=== PATIENT | male | born 1965 | race Caucasian/White ===

== ENCOUNTER 2019-04-29 17:29 | Inpatient (IN) | payer OTHER ==
[~2019-04-29] VITALS: Ht 190.5 cm; Wt 106.1 kg
[~2019-04-29 17:29] MED LIST: LIDOcaine 2% (20 mg/ml) 5ml cardiac syringe ONE; albumin (human) 25% 100 ML IV solution IV ONE; aminocaproic acid 250 MG/1 ML inj. ONE; aspirin 81mg tab.chew ONE; calcium chloride 100 MG/1 ML inj IV ONE; heparin 1,000 units/ml 10ml inj ONE; heparin 10,000 units/1 ML INJ ONE; magnesium sulf 1 GM/2 ML ONE; methylPREDNISolone sod. succ. 500mg inj ONE; nitroGLYCERIN in D5W 50mg/250ml (Tridil) infusion IV ONE; normal saline 1000ML IV soln ONE; papaverine 30 mg/ml 2ml inj. ONE; phenylephrine 10mg/ml inj. ONE; potassium Cl 2 mEq/ml inj IV ONE; sodium bicarbonate (8.4%) 1 mEq/ml syringe ONE
[2019-04-29] MEDS ORDERED: niCARDipine-NS 40mg/200ml IVPB 200 ML IV SCH (17:50)
[2019-04-29] MEDS ORDERED: nitroGLYCERIN-Tridil 50MG/D5W 250 ML IV PRN (18:20)
[2019-04-29 18:22] LABS: BASOPHILS % (AUTO) 0.3 % (0-1); EOSINOPHILS # (AUTO) 0.1 X10'3 (0-0.9); EOSINOPHILS % (AUTO) 1.5 % (0-6); HEMATOCRIT 41.3 % (42.0-52.0); HEMOGLOBIN 14.3 g/dl (14.0-17.9); MEAN CORPUSCULAR HEMOGLOBIN 31.1 PG (27.0-31.0); MEAN CORPUSCULAR HGB CONC 34.6 g/dL (33.0-36.5); MEAN CORPUSCULAR VOLUME 89.9 FL (78-98); MEAN PLATELET VOLUME 9.6 FL (7.4-10.4); MONOCYTES # (AUTO) 0.7 X10'3 (0-0.9); MONOCYTES % (AUTO) 7.8 % (2-12); NEUTROPHILS # (AUTO) 4.6 X10'3 (1.8-7.7); NEUTROPHILS % (AUTO) 54.4 % (42-75); PLATELET COUNT 191 X10'3 (140-440); RED CELL DISTRIBUTION WIDTH 12.7 % (11.5-14.5); WHITE BLOOD COUNT 8.4 X10'3 (4.5-11.0)
[2019-04-29] MEDS ORDERED: aspirin 81mg tab.chew PO ONE (18:25)
[2019-04-29] MEDS ORDERED: heparin, porcine 5000 units/ml vial IV ONE (18:25)
[2019-04-29] MEDS ORDERED: heparin, porcine 5000 units/ml vial IV SCH (18:25)
[2019-04-29] MEDS ORDERED: midazolam 2 mg/2 ml injection ONE ×2 (18:30→18:54)
[2019-04-29] MEDS ORDERED: fentaNYL/PF 50MCG/1 ML 2ML syringe ONE (18:31)
[2019-04-29] MEDS ORDERED: LIDOcaine 1% (10mg/ml)w/preservative injection 20ml MDV ONE (18:31)
[2019-04-29] MEDS ORDERED: iohexol 350 MG/1 ML 200ml bottle ONE (18:31)
[2019-04-29] MEDS ORDERED: iohexol 350 MG/ML 50ML vial IV ONE (18:31)
[2019-04-29 18:35] LABS: ALANINE AMINOTRANSFERASE 27 U/L (12-78); ALBUMIN 3.4 G/DL (3.4-5.0); ALBUMIN/GLOBULIN RATIO 0.9 (1.1-1.5); ALKALINE PHOSPHATASE 72 IU/L (46-116); ANION GAP 9 (8-16); ASPARTATE AMINO TRANSFERASE 14 U/L (10-37); BILIRUBIN,TOTAL 0.3 MG/DL (0.1-1.0); BLOOD UREA NITROGEN 14 MG/DL (7-18); BUN/CREATININE RATIO 14.9 (5.4-32.0); CALCIUM 9.1 MG/DL (8.5-10.1); CHLORIDE 103 MMOL/L (99-107); CREATININE 0.94 MG/DL (0.60-1.10); GLUCOSE 330 MG/DL (70-104); POTASSIUM 4.3 MMOL/L (3.5-5.1); SODIUM 140 MMOL/L (135-145); TOTAL CARBON DIOXIDE 27.8 MMOL/L (24-32); TOTAL PROTEIN 7.1 G/DL (6.4-8.2); eGFR 83 ML/MIN
[2019-04-29] MEDS ORDERED: heparin 10,000 units/1 ML INJ IV SCH (18:35)
[2019-04-29 18:40] LABS: MAGNESIUM 1.8 MG/DL (1.5-2.4)
[2019-04-29] MEDS ORDERED: metoprolol tartrate 1mg/ml inj IV ONE (18:57)
[2019-04-29] MEDS: heparin 25,000 UNIT/250ml bag 250 ML IV SCH (19:00)
[2019-04-29] MEDS: niCARDipine-NS 40mg/200ml IVPB 200 ML IV SCH ×2 (19:00→21:59)
[2019-04-29] MEDS ORDERED: heparin 25,000 UNIT/250ml bag 250 ML IV ONE (19:14)
--- NOTE | 2019-04-29 19:30 | NUR ---
Patient in room ICU 2041. I have received report from [facility] Medical Pathology Teacher RN and had the opportunity to ask questions and assume patient care. Right groin sheath to pressure bag and transduced. Pt denies pain at this time.
[2019-04-29 20:00] VITALS: BP 138/89
[2019-04-29] MEDS ORDERED: glucagon, human recombinant 1mg kit SUBCUT PRN (20:00)
[2019-04-29] MEDS ORDERED: potassium CL 10mEq/100ml bag 100 ML IV PRN (20:00)
[2019-04-29] MEDS ORDERED: magnesium Cl slow-release 64mg tablet PO PRN (20:00)
[2019-04-29] MEDS ORDERED: MESSAGE TO PHARMACY PO ONE (20:00)
[2019-04-29] MEDS ORDERED: dextrose 50%-water 50ml dispensing syringe IV PRN ×2 (20:00)
[2019-04-29] MEDS ORDERED: dextrose ORAL solution 15 GM/59 ML bottle PO PRN ×2 (20:00)
[2019-04-29] MEDS ORDERED: ondansetron/PF 4mg/2ml inj IV PRN (20:00)
[2019-04-29] MEDS ORDERED: magnesium 4gm in 100ml NS 100 ML IV PRN (20:00)
[2019-04-29] MEDS ORDERED: magnesium 2GM in 50ml NS 50 ML IV PRN (20:00)
[2019-04-29] MEDS ORDERED: acetaminophen 650mg rectal suppository RC PRN (20:00)
[2019-04-29] MEDS ORDERED: acetaminophen 325mg tablet PO PRN ×3 (20:00→20:35)
[2019-04-29] MEDS ORDERED: potassium Cl 20 mEq SR tablet PO PRN (20:00)
[2019-04-29] MEDS ORDERED: morphine 4 MG/ML inj SYRINge IV PRN (20:35)
[2019-04-29] MEDS ORDERED: morphine 10mg/ml inj. IV PRN (20:35)
[2019-04-29] MEDS ORDERED: HYDROcodone/acetaminophen 10/325mg tab PO PRN (20:35)
[2019-04-29] MEDS ORDERED: proCHLORperazine 10 MG/2 ml inj IV PRN (20:35)
[2019-04-29] MEDS ORDERED: magnesium hydroxide 30ml (MOM) UD suspension PO PRN (20:35)
[2019-04-29] MEDS ORDERED: nitroGLYCERIN 0.4mg SUBLingual tab SL PRN (20:35)
[2019-04-29] MEDS ORDERED: heparin 10,000 units/1 ML INJ IV ONE (20:40)
[2019-04-29] MEDS: normal saline 1000ml 1,000 ML IV SCH (20:58)
[2019-04-29 21:00] VITALS: BP 132/88
[2019-04-29 21:09] LABS: PARTIAL THROMBOPLASTIN TIME 25 SECONDS (22-32)
[2019-04-29] MEDS: cyclobenzaprine 10mg tablet PO PRN (21:15)
[2019-04-29] MEDS: metoprolol succinate 25mg (24-HOUR) SR. Tablet PO SCH (21:39)
[2019-04-29 22:00] VITALS: BP 129/73
[2019-04-29] MEDS: insulin glargine (Lantus) pen - multi-dose SQ SCH (22:11)
[2019-04-29] MEDS: insulin Lispro (HumaLOG) vial - multi-dose SQ SCH (22:14)
[2019-04-29 22:32] LABS: HEMOGLOBIN A1C 9.5 % (4.5-6.2)
[2019-04-29] MEDS ORDERED: METF500T PO (22:49)
[2019-04-29 23:00] VITALS: BP 139/76
[2019-04-29] MEDS: OXAZEpam 15mg capsule PO PRN (23:25)
[2019-04-30] VITALS (24 sets, daily range): BP systolic 92–152; BP diastolic 59–90
[2019-04-30 01:16] LABS: BASOPHILS % (AUTO) 0.3 % (0-1); EOSINOPHILS # (AUTO) 0.1 X10'3 (0-0.9); EOSINOPHILS % (AUTO) 1.5 % (0-6); HEMATOCRIT 38.4 % (42.0-52.0); HEMOGLOBIN 13.5 g/dl (14.0-17.9); LYMPHOCYTES % (AUTO) 31.3 % (21-51); MEAN CORPUSCULAR HEMOGLOBIN 31.3 PG (27.0-31.0); MEAN CORPUSCULAR VOLUME 89.3 FL (78-98); MEAN PLATELET VOLUME 9.4 FL (7.4-10.4); MONOCYTES # (AUTO) 0.6 X10'3 (0-0.9); MONOCYTES % (AUTO) 6.8 % (2-12); NEUTROPHILS # (AUTO) 5.7 X10'3 (1.8-7.7); NEUTROPHILS % (AUTO) 60.1 % (42-75); PLATELET COUNT 195 X10'3 (140-440); RED CELL DISTRIBUTION WIDTH 13.2 % (11.5-14.5); WHITE BLOOD COUNT 9.5 X10'3 (4.5-11.0)
[2019-04-30 01:39] LABS: PARTIAL THROMBOPLASTIN TIME 28 SECONDS (22-32)
[2019-04-30 01:57] LABS: ALANINE AMINOTRANSFERASE 28 U/L (12-78); ALBUMIN 3.2 G/DL (3.4-5.0); ALKALINE PHOSPHATASE 66 IU/L (46-116); ANION GAP 10 (8-16); ASPARTATE AMINO TRANSFERASE 42 U/L (10-37); BILIRUBIN,TOTAL 0.2 MG/DL (0.1-1.0); BLOOD UREA NITROGEN 15 MG/DL (7-18); BUN/CREATININE RATIO 20.3 (5.4-32.0); CALCIUM 8.6 MG/DL (8.5-10.1); CHLORIDE 103 MMOL/L (99-107); CHOL/HDL RATIO 6.1 (0.00-4.99); CHOLESTEROL 146 MG/DL (0-200); CREATININE 0.74 MG/DL (0.60-1.10); GLUCOSE 288 MG/DL (70-104); HDL CHOLESTEROL 24 MG/DL (35-60); LDL CHOLESTEROL 83 MG/DL (50-100); MAGNESIUM 1.6 MG/DL (1.5-2.4); PHOSPHORUS 3.4 MG/DL (2.3-4.5); POTASSIUM 3.3 MMOL/L (3.5-5.1); SODIUM 139 MMOL/L (135-145); TOTAL CARBON DIOXIDE 26.3 MMOL/L (24-32); TOTAL PROTEIN 6.4 G/DL (6.4-8.2); TRIGLYCERIDES 444 MG/DL (20-135); eGFR > 90 ML/MIN
[2019-04-30] MEDS: heparin 10,000 units/1 ML INJ IV PRN ×3 (02:22→15:39)
[2019-04-30] MEDS: heparin 25,000 UNIT/250ml bag 250 ML IV SCH ×2 (02:23→15:32)
[2019-04-30] MEDS: potassium Cl 20 mEq SR tablet PO PRN ×3 (02:24→10:37)
[2019-04-30] MEDS: HYDROcodone/acetaminophen 10/325mg tab PO PRN ×2 (05:10→12:32)
[2019-04-30] MEDS: cyclobenzaprine 10mg tablet PO PRN ×3 (05:10→21:13)
[2019-04-30] MEDS: normal saline 1000ml 1,000 ML IV SCH (05:44)
[2019-04-30] MEDS: niCARDipine-NS 40mg/200ml IVPB 200 ML IV SCH ×2 (05:44→20:55)
--- NOTE | 2019-04-30 06:22 | NUR ---
Student documentation: I have reviewed and agree with all interventions, assessments performed and documented by Hugo. Student Medication Administration: For this medication-pass time frame, all medication were reviewed, dispensed, administered and documented per hospital policy by Hugo. Problems reprioritized. Patient report given, questions answered & plan of care reviewed with Giovani SPEARS.
--- NOTE | 2019-04-30 06:30 | NUR ---
Patient in room ICU 2041. I have received report from REGAN Rodriguez and had the opportunity to ask questions and assume patient care.
[2019-04-30] MEDS: metoprolol succinate 25mg (24-HOUR) SR. Tablet PO SCH (07:38)
[2019-04-30] MEDS: aspirin 81mg tab.chew PO SCH (07:38)
[2019-04-30] MEDS: atorvastatin 20mg tablet PO SCH (07:38)
[2019-04-30] MEDS: docusate sod 100mg capsule PO SCH ×2 (07:38→20:54)
[2019-04-30] MEDS: pantoprazole 40mg Tablet.DR PO SCH (07:39)
--- NOTE | 2019-04-30 07:50 | NUR ---
Woke pt for AM medications and lab draw. He became hypotensive BP 86/49 and bradycardic with HR in low 50's one PVC observed. Tridil and Cardene gtt stopped. Pt reported feeling "lightheaded." 250 mL fluid bolus administered. Pt's BP responded. He denied chest discomfort, he denied nausea. Pt reported that he was "feeling better." Continuing to monitor closely.
--- NOTE | 2019-04-30 08:42 | NUR ---
Nicardipine gtt restarted BP 140/79(99).
[2019-04-30] MEDS: insulin Lispro (HumaLOG) vial - multi-dose SQ SCH ×3 (08:53→20:14)
[2019-04-30] MEDS ORDERED: FLU VACC QS2019-20 36MOS UP/PF 60 MCG/0.5 ML SYRINGE IMVAC ONE (10:00)
[2019-04-30] MEDS ORDERED: pneumococcal 23-VAL P-sac vacc 25 mcg/0.5ml vial IMVAC ONE (10:00)
--- NOTE | 2019-04-30 10:16 | NUR ---
12 hr trop reported as 15.89. Dr Philippe informed. No orders received. Pt stable.
--- NOTE | 2019-04-30 10:23 | NUR ---
Dr. Murray in to see pt.
--- NOTE | 2019-04-30 11:21 | NUR ---
DM Consult: Pt admit w/ STEMI and hypertensive emergency hx T2DM A1C 9.5. TG 444 on admit. Per MD notes; pt does not follow w/ PCP/MD for medical coverage r/t insurance issues and reports taking Glucophage not routinely for DM. Pt currently NPO at this time pending CABG s/p cardiac cath. Pt will need DM/HH/CABG diet eds once stable prior to d/c. LBM 04/29. Will continue to monitor. Rec: 1. advance diet per MD to heart healthy/carb controlled 2. DM/HH/CABG eds once stable prior to d/c 3. monitor for ONS needs post-op 4. wt per rx Addendum: 04/30/19 at [address] Amended: Links added.
[2019-04-30] MEDS ORDERED: insulin Lispro (HumaLOG) vial - multi-dose SQ SCH (13:30)
[2019-04-30] MEDS ORDERED: dextrose ORAL solution 15 GM/59 ML bottle PO PRN ×2 (13:30)
[2019-04-30] MEDS ORDERED: MESSAGE TO PHARMACY PO ONE (13:30)
[2019-04-30] MEDS ORDERED: glucagon, human recombinant 1mg kit SUBCUT PRN (13:30)
[2019-04-30] MEDS ORDERED: dextrose 50%-water 50ml dispensing syringe IV PRN ×3 (13:30→18:45)
--- NOTE | 2019-04-30 15:01 | NUR ---
RN called RD regarding pt frustration since being informed GLU needs to be lowered prior to OR and received carbs on NCS tray. Pt/family seen by RD. Pt complained of amount of carbs received; then reported would eat any carbs placed in front of him; then reported didn't eat any carbs on meal since it was cold and only ate proteins. RD provided pt/family education on carb controlled diet portioning, how GLU is covered per protocol, and DM/HH/CABG eds w/ RD contact information provided. Pt ultimately requested large salad w/o dressing since didn't eat carbs on tray; dietary notified to send [employer] salad. RN notified that salad is 10g carbs for optimal coverage. RD d/w RN regarding addition of carb controlled diet per MD approval given hx. Pt endorses good appetite; double proteins TIDWM added. Will continue to monitor. Rec: 1. advance diet per MD to heart healthy/carb controlled 2. double proteins TIDWM 3. monitor for ONS needs post-op 4. wt per rx Addendum: 04/30/19 at [address] Amended: Links added.
[2019-04-30] MEDS ORDERED: metFORMIN 500mg tablet PO SCH (17:00)
[2019-04-30 17:55] LABS: ABG BASE EXCESS -2.2 mmol/L (-2.0-3.0); ABG HCO3 22.3 mmol/L (22.0-26.0); ABG OXYGEN SATURATION 93.3 % (95-98); ABG PCO2 (T) 37.5 mmHg (35.0-45.0); ABG PH (T) 7.392 (7.350-7.450); ALLEN'S TEST Positive; FCOHb 0.2 % (0.5-1.5); FMetHb 0.4 % (0.3-1.12); FO2Hb 92.7 % (94-100); RESPIRATORY RATE (OBSERVED) 20 b/min; TOTAL HEMOGLOBIN 13.8 G/dl (14.0-17.9)
--- NOTE | 2019-04-30 18:06 | NUR ---
Femstop discontinued. Groin site without hematoma, distal pulses +2, pt denies paresthesia. Pt transferred to chair. Education provided about postop care. Pt verbalized understanding. PFT, ABG, and arterial mapping have been completed.
--- NOTE | 2019-04-30 18:25 | NUR ---
Problems reprioritized. Patient report given, questions answered & plan of care reviewed with REGAN Cotter.
--- NOTE | 2019-04-30 18:25 | NUR ---
Patient in room ICU 2041. I have received report from REGAN Matute and had the opportunity to ask questions and assume patient care. Patient seated in chair at bedside. No complaints of chest pain or discomfort. Patient does c/o cramping to his back from his chronic back pain states he would like "flexeril later".
[2019-04-30] MEDS ORDERED: magnesium 2GM in 50ml NS 50 ML IV PRN (18:45)
[2019-04-30] MEDS ORDERED: potassium Cl 20mEq/100mL bag 100 ML IV PRN (18:45)
[2019-04-30] MEDS ORDERED: MALTODEXTRIN/FRUCTOSE 0.68 KCAL/ML LIQUID 296ML BOTTLE PO ONE (18:45)
[2019-04-30] MEDS ORDERED: MESSAGE TO NURSING PO ONE ×2 (18:45→21:00)
[2019-04-30] MEDS ORDERED: magnesium 4gm in 100ml NS 100 ML IV PRN (18:45)
[2019-04-30] MEDS ORDERED: metoprolol tartrate 12.5mg (1/2 tablet) PO SCH (20:00)
[2019-04-30] MEDS: insulin glargine (Lantus) pen - multi-dose SQ SCH (20:15)
[2019-04-30] MEDS: mupirocin 2% nasal ointment 1gm UD NS SCH (20:54)
[2019-04-30] MEDS ORDERED: insulin glargine (Lantus) pen - multi-dose SQ SCH (21:00)
[2019-04-30] MEDS: OXAZEpam 15mg capsule PO PRN (21:13)
[2019-04-30 21:49] LABS: PARTIAL THROMBOPLASTIN TIME 54 SECONDS (22-32)
[2019-05-01] VITALS (23 sets, daily range): BP systolic 94–167; BP diastolic 57–113
[2019-05-01 03:19] LABS: BASOPHILS % (AUTO) 0.3 % (0-1); EOSINOPHILS # (AUTO) 0.2 X10'3 (0-0.9); HEMATOCRIT 39.5 % (42.0-52.0); HEMOGLOBIN 13.7 g/dl (14.0-17.9); LYMPHOCYTES # (AUTO) 3.8 X10'3 (1.1-4.8); MEAN CORPUSCULAR HEMOGLOBIN 31.5 PG (27.0-31.0); MEAN CORPUSCULAR HGB CONC 34.8 g/dL (33.0-36.5); MEAN CORPUSCULAR VOLUME 90.5 FL (78-98); MEAN PLATELET VOLUME 9.3 FL (7.4-10.4); MONOCYTES # (AUTO) 0.8 X10'3 (0-0.9); MONOCYTES % (AUTO) 7.9 % (2-12); NEUTROPHILS # (AUTO) 5.5 X10'3 (1.8-7.7); NEUTROPHILS % (AUTO) 52.8 % (42-75); PLATELET COUNT 180 X10'3 (140-440); RED BLOOD COUNT 4.36 X10'6 (4.70-6.10); RED CELL DISTRIBUTION WIDTH 12.9 % (11.5-14.5); WHITE BLOOD COUNT 10.3 X10'3 (4.5-11.0)
[2019-05-01 03:44] LABS: ALANINE AMINOTRANSFERASE 26 U/L (12-78); ALBUMIN/GLOBULIN RATIO 0.9 (1.1-1.5); ALKALINE PHOSPHATASE 65 IU/L (46-116); ANION GAP 7 (8-16); ASPARTATE AMINO TRANSFERASE 23 U/L (10-37); BILIRUBIN,TOTAL 0.4 MG/DL (0.1-1.0); BLOOD UREA NITROGEN 10 MG/DL (7-18); BUN/CREATININE RATIO 14.1 (5.4-32.0); CALCIUM 7.9 MG/DL (8.5-10.1); CHLORIDE 107 MMOL/L (99-107); CREATININE 0.71 MG/DL (0.60-1.10); GLUCOSE 202 MG/DL (70-104); MAGNESIUM 2.6 MG/DL (1.5-2.4); PHOSPHORUS 3.8 MG/DL (2.3-4.5); POTASSIUM 3.6 MMOL/L (3.5-5.1); SODIUM 142 MMOL/L (135-145); TOTAL CARBON DIOXIDE 27.7 MMOL/L (24-32); TOTAL PROTEIN 6.5 G/DL (6.4-8.2); eGFR > 90 ML/MIN
[2019-05-01] MEDS: heparin 25,000 UNIT/250ml bag 250 ML IV SCH (03:55)
[2019-05-01] MEDS: potassium Cl 20 mEq SR tablet PO PRN ×3 (04:05→07:41)
[2019-05-01] MEDS: niCARDipine-NS 40mg/200ml IVPB 200 ML IV SCH (05:00)
[2019-05-01] MEDS ORDERED: ROPIVAcaine 0.5% (5mg/ml) 30ml vial ONE (06:12)
--- NOTE | 2019-05-01 06:20 | NUR ---
Problems reprioritized. Patient report given, questions answered & plan of care reviewed with REGAN Gramajo.
[2019-05-01] MEDS ORDERED: MESSAGE TO NURSING PO ONE ×3 (07:00→08:00)
[2019-05-01] MEDS: atorvastatin 20mg tablet PO SCH (07:33)
[2019-05-01] MEDS: metoprolol succinate 25mg (24-HOUR) SR. Tablet PO SCH (07:33)
[2019-05-01] MEDS: docusate sod 100mg capsule PO SCH ×2 (07:34→20:53)
[2019-05-01] MEDS: aspirin 81mg tab.chew PO SCH (07:40)
[2019-05-01] MEDS: mupirocin 2% nasal ointment 1gm UD NS SCH ×2 (07:41→20:53)
[2019-05-01] MEDS: pantoprazole 40mg Tablet.DR PO SCH (07:41)
[2019-05-01] MEDS: insulin Lispro (HumaLOG) vial - multi-dose SQ SCH ×3 (07:44→18:00)
[2019-05-01] MEDS ORDERED: insulin glargine (Lantus) pen - multi-dose SQ PRN (09:00)
[2019-05-01] MEDS ORDERED: gabapentin 400mg capsule PO ONE (09:00)
[2019-05-01] MEDS ORDERED: cefazolin/dext.iso 2gm/50ml 50 ML IV ONE (09:00)
[2019-05-01] MEDS ORDERED: insulin regular, human 100 UNIT in normal saline 100ml IV soln 100 ML IV SCH ×2 (09:00)
[2019-05-01] MEDS ORDERED: LORazepam 2 mg/ml vial IV ONE (09:20)
[2019-05-01] MEDS ORDERED: famotidine 20mg tablet PO ONE (09:20)
[2019-05-01] MEDS ORDERED: pneumococcal 23-VAL P-sac vacc 25 mcg/0.5ml vial IMVAC ONE (12:50)
[2019-05-01] MEDS ORDERED: aminocaproic acid 250 MG/1 ML inj. ONE (12:54)
[2019-05-01] MEDS ORDERED: sevoflurane 250ml liquid IH ONE (12:54)
[2019-05-01] MEDS ORDERED: nitroGLYCERIN in D5W 50mg/250ml (Tridil) infusion IV ONE (12:54)
[2019-05-01] MEDS ORDERED: protamine sulf. 10mg/ml inj. IV ONE (12:54)
--- NOTE | 2019-05-01 12:56 | NUR ---
To [facility] with RN on monitor
[2019-05-01] MEDS ORDERED: SUFENTANIL CITRATE 50 MCG/ML 2ml ampule IV ONE (12:57)
[2019-05-01] MEDS ORDERED: MIDAZolam 5mg/5ml vial ONE (12:57)
[2019-05-01 13:51] LABS: ABG BASE EXCESS -2.1 mmol/L (-2.0-3.0); ABG OXYGEN SATURATION 97.4 % (95-98); ABG PCO2 40.5 mmHg (35.0-45.0); ABG PH 7.372 (7.350-7.450); ABG PO2 100.8 mmHg (60.0-100.0); CL (ABG) 102 mmol/L (99-107); FCOHb 0.5 % (0.5-1.5); FMetHb 0.4 % (0.3-1.12); FO2Hb 96.5 % (94-100); GLUCOSE (ABG) 164 mg/dl (70-104); IONIZED CA (ABG) 1.15 mmol/L (1.03-1.32); K (ABG) 3.8 mmol/L (3.3-5.1); NA (ABG) 137 mmol/L (135-145); TOTAL HEMOGLOBIN 13.5 G/dl (14.0-17.9)
[2019-05-01] MEDS ORDERED: ceFAZolin 1000mg inj ONE ×2 (13:57)
[2019-05-01] MEDS ORDERED: rocuronium 10mg/ml inj IV ONE ×3 (13:57→15:49)
[2019-05-01] MEDS ORDERED: propofol inj 20 ML IV ONE (13:57)
[2019-05-01] MEDS ORDERED: heparin 10,000 units/1 ML INJ IR ONE (14:01)
[2019-05-01] MEDS ORDERED: papaverine 30 mg/ml 2ml inj. IA ONE (14:02)
[2019-05-01 14:50] LABS: ABG HCO3 23.1 mmol/L (22.0-26.0); ABG PH 7.369 (7.350-7.450); ABG PO2 342.6 mmHg (60.0-100.0); CL (ABG) 102 mmol/L (99-107); FCOHb 0.2 % (0.5-1.5); FMetHb 0.5 % (0.3-1.12); FO2Hb 98.3 % (94-100); GLUCOSE (ABG) 137 mg/dl (70-104); IONIZED CA (ABG) 1.06 mmol/L (1.03-1.32); K (ABG) 4.6 mmol/L (3.3-5.1); NA (ABG) 136 mmol/L (135-145); TOTAL HEMOGLOBIN 10.8 G/dl (14.0-17.9)
[2019-05-01 14:55] LABS: ACT @ 1.70 U 249 SEC (193-297); ACT @ 2.84 U 346 SEC (260-420); BASELINE ACT 122 SEC (101-148); PATIENT WEIGHT 93.0k KG
[2019-05-01 15:15] LABS: ABG BASE EXCESS VENOUS -1.3 mmol/L; ABG HCO3 VENOUS 24.3 mmol/L; ABG PCO2 VENOUS 44.9 mmHg; ABG PO2 VENOUS 50.8 mmHg; CL (ABG) 102 mmol/L (99-107); FCOHb VENOUS 0.7 %; FHHb VENOUS 13.7 %; FMetHb VENOUS 0.5 %; FO2Hb VENOUS 85.1 %; GLUCOSE (ABG) 138 mg/dl (70-104); IONIZED CA (ABG) 1.08 mmol/L (1.03-1.32); K (ABG) 4.7 mmol/L (3.3-5.1); NA (ABG) 136 mmol/L (135-145); TOTAL HEMOGLOBIN 11.3 G/dl (14.0-17.9)
[2019-05-01 15:41] LABS: ABG BASE EXCESS 1.2 mmol/L (-2.0-3.0); ABG HCO3 25.7 mmol/L (22.0-26.0); ABG OXYGEN SATURATION 98.6 % (95-98); ABG PCO2 40.2 mmHg (35.0-45.0); ABG PH 7.423 (7.350-7.450); ABG PO2 269.2 mmHg (60.0-100.0); CL (ABG) 100 mmol/L (99-107); FCOHb 0.3 % (0.5-1.5); FMetHb 0.6 % (0.3-1.12); FO2Hb 97.7 % (94-100); GLUCOSE (ABG) 139 mg/dl (70-104); IONIZED CA (ABG) 1.26 mmol/L (1.03-1.32); K (ABG) 4.5 mmol/L (3.3-5.1); NA (ABG) 135 mmol/L (135-145)
[2019-05-01 16:11] LABS: ABG BASE EXCESS VENOUS 0.7 mmol/L; ABG HCO3 VENOUS 26.7 mmol/L; ABG PCO2 VENOUS 48.9 mmHg; ABG PO2 VENOUS 38.1 mmHg; CL (ABG) 102 mmol/L (99-107); FCOHb VENOUS 0.8 %; FHHb VENOUS 24.9 %; FMetHb VENOUS 0.6 %; FO2Hb VENOUS 73.7 %; GLUCOSE (ABG) 157 mg/dl (70-104); IONIZED CA (ABG) 1.22 mmol/L (1.03-1.32); K (ABG) 4.2 mmol/L (3.3-5.1); NA (ABG) 138 mmol/L (135-145); TOTAL HEMOGLOBIN 10.9 G/dl (14.0-17.9)
[2019-05-01] MEDS ORDERED: acetaminophen 1,000mg/100ml IV 100 ML IV ONE (16:19)
[2019-05-01] MEDS ORDERED: sodium phosphate inj. 30 MMOL in dextrose 5%-water 250 ML IV PRN (16:40)
[2019-05-01] MEDS ORDERED: morphine 4 MG/ML inj SYRINge IV PRN ×2 (16:40)
[2019-05-01] MEDS: sodium chloride 0.45% 1,000 ML IV SCH (16:40)
[2019-05-01] MEDS ORDERED: niCARDipine-NS 40mg/200ml IVPB 200 ML IV PRN (16:40)
[2019-05-01] MEDS ORDERED: magnesium 4gm in 100ml NS 100 ML IV PRN (16:40)
[2019-05-01] MEDS ORDERED: magnesium hydroxide 30ml (MOM) UD suspension PO PRN (16:40)
[2019-05-01] MEDS ORDERED: dextrose 50%-water 50ml dispensing syringe IV PRN (16:40)
[2019-05-01] MEDS ORDERED: insulin regular, human inj. 100 UNITS in normal saline 100ml IV soln 100 ML IV SCH ×2 (16:40)
[2019-05-01] MEDS ORDERED: DOPamine 400mg/D5W 250ml 250 ML IV PRN (16:40)
[2019-05-01] MEDS ORDERED: acetaminophen 325mg tablet PO PRN (16:40)
[2019-05-01] MEDS ORDERED: sodium phosphate inj. 15 MMOL in dextrose 5%-water 150 ML IV PRN (16:40)
[2019-05-01] MEDS ORDERED: nitroGLYCERIN-Tridil 50MG/D5W 250 ML IV PRN (16:40)
[2019-05-01] MEDS ORDERED: ondansetron/PF 4mg/2ml inj IV PRN (16:40)
[2019-05-01] MEDS ORDERED: potassium Cl 20 mEq SR tablet PO PRN (16:40)
[2019-05-01] MEDS ORDERED: normal saline 250ml IV soln 250 ML IV PRN (16:40)
[2019-05-01] MEDS ORDERED: metoclopramide 5 mg/ml inj IV PRN (16:40)
[2019-05-01] MEDS ORDERED: albumin (Human) 5% 250ml 250 ML IV PRN (16:40)
[2019-05-01] MEDS ORDERED: Neutra Phos packet PO PRN (16:40)
[2019-05-01] MEDS ORDERED: pantoprazole 40 MG vial IV ONE (16:40)
--- NOTE | 2019-05-01 16:55 | NUR ---
Received to room 2041, accompanied by NIKA Ham and surgical crew. Placed on ventilator, to cardiac technologist, arterial line and PA line pressure monitored. Chest tubes to suction at 20 cm. Cedillo cath to gravity drainage. Dressings are dry and intact. See assessment record. All vasoactive drugs are infusing via central line.
[2019-05-01 17:11] LABS: ABG BASE EXCESS -1.9 mmol/L (-2.0-3.0); ABG HCO3 24.1 mmol/L (22.0-26.0); ABG OXYGEN SATURATION 92.9 % (95-98); ABG PCO2 (T) 45.5 mmHg (35.0-45.0); ABG PH (T) 7.341 (7.350-7.450); ABG PO2 (T) 67.8 mmHg (83-108); FCOHb 0.3 % (0.5-1.5); FMetHb 0.3 % (0.3-1.12); FO2Hb 92.3 % (94-100); PEEP 5 cm H2O; RESPIRATORY RATE 14 b/min; RESPIRATORY RATE (OBSERVED) 14 b/min; TIDAL VOLUME 600 mL; TOTAL HEMOGLOBIN 12.7 G/dl (14.0-17.9)
[2019-05-01 17:14] LABS: BASOPHILS % (AUTO) 0.2 % (0-1); EOSINOPHILS % (AUTO) 0.3 % (0-6); HEMATOCRIT 34.8 % (42.0-52.0); HEMOGLOBIN 11.9 g/dl (14.0-17.9); LYMPHOCYTES # (AUTO) 1.1 X10'3 (1.1-4.8); MEAN CORPUSCULAR HEMOGLOBIN 31.3 PG (27.0-31.0); MEAN CORPUSCULAR HGB CONC 34.3 g/dL (33.0-36.5); MEAN CORPUSCULAR VOLUME 91.2 FL (78-98); MEAN PLATELET VOLUME 9.1 FL (7.4-10.4); MONOCYTES # (AUTO) 0.8 X10'3 (0-0.9); MONOCYTES % (AUTO) 5.9 % (2-12); NEUTROPHILS # (AUTO) 11.3 X10'3 (1.8-7.7); NEUTROPHILS % (AUTO) 85.6 % (42-75); PLATELET COUNT 130 X10'3 (140-440); RED BLOOD COUNT 3.81 X10'6 (4.70-6.10); WHITE BLOOD COUNT 13.2 X10'3 (4.5-11.0)
[2019-05-01 17:37] LABS: ALANINE AMINOTRANSFERASE 30 U/L (12-78); ALBUMIN 3.3 G/DL (3.4-5.0); ALBUMIN/GLOBULIN RATIO 1.3 (1.1-1.5); ALKALINE PHOSPHATASE 48 IU/L (46-116); ANION GAP 9 (8-16); ASPARTATE AMINO TRANSFERASE 35 U/L (10-37); BILIRUBIN,TOTAL 0.6 MG/DL (0.1-1.0); BLOOD UREA NITROGEN 10 MG/DL (7-18); BUN/CREATININE RATIO 11.5 (5.4-32.0); CALCIUM 8.8 MG/DL (8.5-10.1); CHLORIDE 111 MMOL/L (99-107); CREATININE 0.87 MG/DL (0.60-1.10); GLUCOSE 193 MG/DL (70-104); MAGNESIUM 3.5 MG/DL (1.5-2.4); PHOSPHORUS 2.3 MG/DL (2.3-4.5); POTASSIUM 4.2 MMOL/L (3.5-5.1); SODIUM 146 MMOL/L (135-145); TOTAL PROTEIN 5.9 G/DL (6.4-8.2); eGFR > 90 ML/MIN
[2019-05-01 17:48] LABS: PARTIAL THROMBOPLASTIN TIME 27 SECONDS (22-32)
--- NOTE | 2019-05-01 18:30 | NUR ---
I have received report and assumed care of pt, pt in bed rise and fall of chest cavity equile and symmetrical, no crepitus noted, no tracheal deviation noted, assessment complete
--- NOTE | 2019-05-01 19:05 | NUR ---
pt opens eyes spontaneous nodes head yes to pain, pt medicated with optimal results, pt on insulin drip md orders followed, Tridil in place to keep sbp 100-140.
[2019-05-01] MEDS ORDERED: lactulose 20gm/30ml cup PO PRN (20:00)
[2019-05-01] MEDS: gabapentin 300mg capsule PO SCH (20:53)
[2019-05-01] MEDS: vancomycin/NS 1 GM ADD-VANTAGE 250 ML IV SCH (20:53)
--- NOTE | 2019-05-01 22:25 | NUR ---
weaning vent as tolerated
[2019-05-01 22:26] LABS: ALBUMIN 3.4 G/DL (3.4-5.0); ANION GAP 9 (8-16); BLOOD UREA NITROGEN 11 MG/DL (7-18); CALCIUM 8.2 MG/DL (8.5-10.1); CHLORIDE 109 MMOL/L (99-107); GLUCOSE 216 MG/DL (70-104); MAGNESIUM 2.4 MG/DL (1.5-2.4); PHOSPHORUS 2.8 MG/DL (2.3-4.5); POTASSIUM 4.1 MMOL/L (3.5-5.1); SODIUM 144 MMOL/L (135-145); TOTAL CARBON DIOXIDE 26.2 MMOL/L (24-32); eGFR 78 ML/MIN
[2019-05-01 22:30] LABS: PARTIAL THROMBOPLASTIN TIME 26 SECONDS (22-32)
[2019-05-01 22:35] LABS: BASOPHILS % (AUTO) 0.1 % (0-1); EOSINOPHILS % (AUTO) 0 % (0-6); HEMATOCRIT 35.6 % (42.0-52.0); HEMOGLOBIN 12.1 g/dl (14.0-17.9); LYMPHOCYTES # (AUTO) 0.7 X10'3 (1.1-4.8); LYMPHOCYTES % (AUTO) 4.8 % (21-51); MEAN CORPUSCULAR VOLUME 91.1 FL (78-98); MEAN PLATELET VOLUME 9.3 FL (7.4-10.4); MONOCYTES # (AUTO) 0.5 X10'3 (0-0.9); MONOCYTES % (AUTO) 3.3 % (2-12); NEUTROPHILS % (AUTO) 91.8 % (42-75); PLATELET COUNT 152 X10'3 (140-440); RED BLOOD COUNT 3.91 X10'6 (4.70-6.10); RED CELL DISTRIBUTION WIDTH 13.1 % (11.5-14.5); WHITE BLOOD COUNT 14.1 X10'3 (4.5-11.0)
[2019-05-01] MEDS: potassium Cl 20mEq/100mL bag 100 ML IV PRN ×2 (22:52→23:53)
[2019-05-01] MEDS: magnesium 2GM in 50ml NS 50 ML IV PRN (22:53)
--- NOTE | 2019-05-01 23:40 | NUR ---
5 % albumin given for sbp less then 100
[2019-05-02] VITALS (24 sets, daily range): BP systolic 99–164; BP diastolic 43–96
[2019-05-02 00:56] LABS: ABG BASE EXCESS -2.8 mmol/L (-2.0-3.0); ABG HCO3 22.2 mmol/L (22.0-26.0); ABG OXYGEN SATURATION 95.8 % (95-98); ABG PCO2 (T) 40.3 mmHg (35.0-45.0); ABG PH (T) 7.361 (7.350-7.450); ABG PO2 (T) 81.9 mmHg (83-108); FCOHb 0.3 % (0.5-1.5); FMetHb 0.2 % (0.3-1.12); FO2Hb 95.3 % (94-100); MINUTE VOLUME 8 L/min; PATIENT TEMPERATURE 37.5; PEEP 5 cm H2O; RESPIRATORY RATE (OBSERVED) 14 b/min; TIDAL VOLUME 678 mL; TOTAL HEMOGLOBIN 12.6 G/dl (14.0-17.9)
[2019-05-02] MEDS: HYDROcodone/acetaminophen 10/325mg tab PO PRN ×4 (01:50→19:10)
[2019-05-02] MEDS: ceFAZolin 1GM/D5W- ADD-VANTAGE 50 ML IV SCH ×3 (02:26→16:18)
[2019-05-02 02:33] LABS: BASOPHILS % (AUTO) 0.2 % (0-1); EOSINOPHILS % (AUTO) 0 % (0-6); HEMATOCRIT 35.1 % (42.0-52.0); LYMPHOCYTES # (AUTO) 0.6 X10'3 (1.1-4.8); LYMPHOCYTES % (AUTO) 4.3 % (21-51); MEAN CORPUSCULAR HEMOGLOBIN 31.7 PG (27.0-31.0); MEAN CORPUSCULAR HGB CONC 34.4 g/dL (33.0-36.5); MEAN CORPUSCULAR VOLUME 92.3 FL (78-98); MEAN PLATELET VOLUME 9.5 FL (7.4-10.4); MONOCYTES # (AUTO) 0.6 X10'3 (0-0.9); MONOCYTES % (AUTO) 3.8 % (2-12); NEUTROPHILS # (AUTO) 13.5 X10'3 (1.8-7.7); NEUTROPHILS % (AUTO) 91.7 % (42-75); PLATELET COUNT 135 X10'3 (140-440); RED CELL DISTRIBUTION WIDTH 13.3 % (11.5-14.5); WHITE BLOOD COUNT 14.7 X10'3 (4.5-11.0)
[2019-05-02 02:39] LABS: PARTIAL THROMBOPLASTIN TIME 24 SECONDS (22-32)
[2019-05-02 02:47] LABS: ALANINE AMINOTRANSFERASE 30 U/L (12-78); ALBUMIN 3.5 G/DL (3.4-5.0); ALBUMIN/GLOBULIN RATIO 1.1 (1.1-1.5); ALKALINE PHOSPHATASE 48 IU/L (46-116); ANION GAP 8 (8-16); ASPARTATE AMINO TRANSFERASE 31 U/L (10-37); BILIRUBIN,TOTAL 0.4 MG/DL (0.1-1.0); BLOOD UREA NITROGEN 11 MG/DL (7-18); BUN/CREATININE RATIO 11.3 (5.4-32.0); CALCIUM 8.8 MG/DL (8.5-10.1); CHLORIDE 112 MMOL/L (99-107); CREATININE 0.97 MG/DL (0.60-1.10); GLUCOSE 154 MG/DL (70-104); MAGNESIUM 2.9 MG/DL (1.5-2.4); PHOSPHORUS 2.7 MG/DL (2.3-4.5); POTASSIUM 4.8 MMOL/L (3.5-5.1); SODIUM 146 MMOL/L (135-145); TOTAL CARBON DIOXIDE 25.9 MMOL/L (24-32); TOTAL PROTEIN 6.6 G/DL (6.4-8.2); eGFR 80 ML/MIN
[2019-05-02] MEDS ORDERED: insulin regular, human 100 UNIT in normal saline 100ml IV soln 100 ML IV SCH ×2 (03:47)
--- NOTE | 2019-05-02 05:38 | NUR ---
0100 pt extubated VC 1.2L RSBI 25 NIF -21 positive cuff leak, see respitory notes for detail,
[2019-05-02] MEDS: gabapentin 300mg capsule PO SCH ×3 (07:31→20:45)
[2019-05-02] MEDS: mupirocin 2% nasal ointment 1gm UD NS SCH ×2 (07:32→20:46)
[2019-05-02] MEDS: atorvastatin 10mg tablet PO SCH (07:32)
[2019-05-02] MEDS: docusate sod 100mg capsule PO SCH ×3 (07:32→20:46)
[2019-05-02] MEDS ORDERED: pneumococcal 23-VAL P-sac vacc 25 mcg/0.5ml vial IMVAC ONE (07:40)
[2019-05-02] MEDS ORDERED: metoprolol tartrate 12.5mg (1/2 tablet) PO SCH (08:00)
[2019-05-02] MEDS ORDERED: aspirin 325mg tablet, delayed-release (Ecotrin) PO SCH (08:00)
[2019-05-02] MEDS: metoprolol tartrate 50mg tablet PO SCH ×2 (08:00→20:44)
[2019-05-02] MEDS: aspirin 81mg tablet.DR PO SCH (08:19)
[2019-05-02] MEDS: ketorolac trometh. 30mg/ml inj. IV SCH ×3 (08:19→20:46)
[2019-05-02 08:21] LABS: ACTIVATED CLOTTING TIME 120 SEC (101-148)
[2019-05-02] MEDS: vancomycin/NS 1 GM ADD-VANTAGE 250 ML IV SCH ×2 (08:21→20:46)
[2019-05-02] MEDS: insulin Lispro (HumaLOG) vial - multi-dose SQ SCH ×4 (08:43→19:22)
--- NOTE | 2019-05-02 09:46 | NUR ---
PA & ART lines removed per policy with MD order. Pt tolerated procedure well. Pt education of warning signs provided.
--- NOTE | 2019-05-02 13:50 | NUR ---
Reassessment: patient is now s/p CABG on 05/01; currently on no concentrated sweets diet. Great appetite and able to eat 75-100% prior to surgery. Patient has been given written DM, heart healthy, and post CABG nutrition education. Last BM 04/29, pt receiving routine colace. Will continue to follow. Rec: 1. Continue no concentrated sweets diet 2. Send double protein with meals per patient request when eating solids post op 3. monitor for ONS needs post-op if with suboptimal PO intake 4. wt per rx Addendum: 05/02/19 at [address] Amended: Links added.
[2019-05-02] MEDS ORDERED: metFORMIN 500mg tablet PO SCH (17:00)
[2019-05-02] MEDS ORDERED: glucagon, human recombinant 1mg kit SUBCUT PRN (18:55)
[2019-05-02] MEDS ORDERED: dextrose ORAL solution 15 GM/59 ML bottle PO PRN ×2 (18:55)
[2019-05-02] MEDS ORDERED: dextrose 50%-water 50ml dispensing syringe IV PRN ×2 (18:55)
[2019-05-02] MEDS: insulin glargine (Lantus) pen - multi-dose SQ SCH ×2 (19:24→21:00)
[2019-05-03] VITALS (18 sets, daily range): BP systolic 110–152; BP diastolic 75–106
[2019-05-03] MEDS: ceFAZolin 1GM/D5W- ADD-VANTAGE 50 ML IV SCH (01:57)
[2019-05-03] MEDS: ketorolac trometh. 30mg/ml inj. IV SCH ×4 (01:57→20:17)
[2019-05-03 02:10] LABS: BASOPHILS # (AUTO) 0.1 X10'3 (0-0.2); BASOPHILS % (AUTO) 0.4 % (0-1); EOSINOPHILS % (AUTO) 0 % (0-6); HEMATOCRIT 31.7 % (42.0-52.0); HEMOGLOBIN 10.8 g/dl (14.0-17.9); LYMPHOCYTES # (AUTO) 1.1 X10'3 (1.1-4.8); LYMPHOCYTES % (AUTO) 6.7 % (21-51); MEAN CORPUSCULAR HEMOGLOBIN 31.4 PG (27.0-31.0); MEAN CORPUSCULAR VOLUME 92.3 FL (78-98); MEAN PLATELET VOLUME 9.9 FL (7.4-10.4); MONOCYTES # (AUTO) 1.6 X10'3 (0-0.9); MONOCYTES % (AUTO) 9.7 % (2-12); NEUTROPHILS % (AUTO) 83.2 % (42-75); PLATELET COUNT 120 X10'3 (140-440); RED BLOOD COUNT 3.44 X10'6 (4.70-6.10); RED CELL DISTRIBUTION WIDTH 13.6 % (11.5-14.5); WHITE BLOOD COUNT 16.8 X10'3 (4.5-11.0)
[2019-05-03 02:19] LABS: ANION GAP 8 (8-16); BLOOD UREA NITROGEN 27 MG/DL (7-18); BUN/CREATININE RATIO 25.7 (5.4-32.0); CALCIUM 8.9 MG/DL (8.5-10.1); CHLORIDE 108 MMOL/L (99-107); CREATININE 1.05 MG/DL (0.60-1.10); GLUCOSE 214 MG/DL (70-104); MAGNESIUM 2.3 MG/DL (1.5-2.4); PHOSPHORUS 4.6 MG/DL (2.3-4.5); POTASSIUM 4.8 MMOL/L (3.5-5.1); SODIUM 141 MMOL/L (135-145); TOTAL CARBON DIOXIDE 25.3 MMOL/L (24-32); eGFR 73 ML/MIN
[2019-05-03] MEDS: magnesium 2GM in 50ml NS 50 ML IV PRN (03:18)
[2019-05-03] MEDS: sodium chloride 0.45% 1,000 ML IV SCH (03:35)
[2019-05-03] MEDS ORDERED: potassium Cl 20 mEq SR tablet PO PRN ×2 (08:05)
[2019-05-03] MEDS ORDERED: magnesium 2GM in 50ml NS 50 ML IV PRN (08:05)
[2019-05-03] MEDS ORDERED: potassium CL 10mEq/100ml bag 100 ML IV PRN ×2 (08:05)
[2019-05-03] MEDS ORDERED: magnesium Cl slow-release 64mg tablet PO PRN (08:05)
[2019-05-03] MEDS ORDERED: magnesium 4gm in 100ml NS 100 ML IV PRN (08:05)
[2019-05-03] MEDS: atorvastatin 10mg tablet PO SCH (08:22)
[2019-05-03] MEDS: pantoprazole 40mg Tablet.DR PO SCH (08:23)
[2019-05-03] MEDS: metoprolol tartrate 50mg tablet PO SCH ×2 (08:23→20:20)
[2019-05-03] MEDS: gabapentin 300mg capsule PO SCH ×2 (08:23→12:22)
[2019-05-03] MEDS: aspirin 81mg tablet.DR PO SCH (08:23)
[2019-05-03] MEDS: mupirocin 2% nasal ointment 1gm UD NS SCH (08:25)
[2019-05-03] MEDS: HYDROcodone/acetaminophen 10/325mg tab PO PRN ×2 (08:25→16:57)
[2019-05-03] MEDS: insulin Lispro (HumaLOG) vial - multi-dose SQ SCH ×2 (08:30→13:40)
[2019-05-03] MEDS ORDERED: FLU VACC QS2019-20 36MOS UP/PF 60 MCG/0.5 ML SYRINGE IMVAC ONE (10:00)
[2019-05-03] MEDS ORDERED: pneumococcal 23-VAL P-sac vacc 25 mcg/0.5ml vial IMVAC ONE (10:30)
--- NOTE | 2019-05-03 15:48 | NUR ---
Patient stable for transfer. Called and gave patient report to REGAN Rojas. Central line d/c'd Patient transferred via wheel chair to ACCE unit.
--- NOTE | 2019-05-03 18:00 | NUR ---
Patient in room MED 316. I have received report from REGAN Rojas and had the opportunity to ask questions and assume patient care.
[2019-05-03] MEDS ORDERED: furosemide 40mg/4ml inj IV ONE (18:20)
[2019-05-03] MEDS: potassium Cl 20 mEq SR tablet PO SCH (20:18)
[2019-05-03] MEDS: magnesium Cl slow-release 64mg tablet PO SCH (20:20)
[2019-05-03] MEDS: insulin glargine (Lantus) pen - multi-dose SQ SCH (21:00)
--- NOTE | 2019-05-03 21:30 | NUR ---
Received regular insulin late from ICU, did not cover pt's dinner blood sugar. Evening lantus coverage is 30 units on SEP, did not give since order needs to be clarified in AM
[2019-05-04 02:00] VITALS: BP 134/86
[2019-05-04] MEDS: HYDROcodone/acetaminophen 10/325mg tab PO PRN (02:17)
[2019-05-04 02:39] LABS: ALBUMIN 3.3 G/DL (3.4-5.0); ANION GAP 6 (8-16); BASOPHILS % (AUTO) 0.2 % (0-1); BLOOD UREA NITROGEN 27 MG/DL (7-18); BUN/CREATININE RATIO 28.7 (5.4-32.0); CALCIUM 9.3 MG/DL (8.5-10.1); CHLORIDE 105 MMOL/L (99-107); CREATININE 0.94 MG/DL (0.60-1.10); EOSINOPHILS # (AUTO) 0.1 X10'3 (0-0.9); EOSINOPHILS % (AUTO) 1.2 % (0-6); GLUCOSE 200 MG/DL (70-104); HEMATOCRIT 36.4 % (42.0-52.0); HEMOGLOBIN 12.3 g/dl (14.0-17.9); LYMPHOCYTES # (AUTO) 2.2 X10'3 (1.1-4.8); LYMPHOCYTES % (AUTO) 19.1 % (21-51); MEAN CORPUSCULAR HEMOGLOBIN 31.5 PG (27.0-31.0); MEAN CORPUSCULAR HGB CONC 33.8 g/dL (33.0-36.5); MEAN PLATELET VOLUME 10.1 FL (7.4-10.4); MONOCYTES % (AUTO) 9.1 % (2-12); NEUTROPHILS # (AUTO) 8.1 X10'3 (1.8-7.7); NEUTROPHILS % (AUTO) 70.4 % (42-75); PLATELET COUNT 150 X10'3 (140-440); POTASSIUM 4.6 MMOL/L (3.5-5.1); RED BLOOD COUNT 3.91 X10'6 (4.70-6.10); RED CELL DISTRIBUTION WIDTH 13.3 % (11.5-14.5); SODIUM 142 MMOL/L (135-145); TOTAL CARBON DIOXIDE 30.6 MMOL/L (24-32); WHITE BLOOD COUNT 11.5 X10'3 (4.5-11.0); eGFR 83 ML/MIN
[2019-05-04] MEDS: ketorolac trometh. 30mg/ml inj. IV SCH ×4 (03:48→21:21)
[2019-05-04 06:00] VITALS: BP 125/86
--- NOTE | 2019-05-04 06:00 | NUR ---
Problems reprioritized. Patient report given, questions answered & plan of care reviewed with REGAN Chapman.
--- NOTE | 2019-05-04 06:10 | NUR ---
Patient in room MED 307. I have received report fromrobe Nuñez RN and had the opportunity to ask questions and assume patient care
[2019-05-04] MEDS ORDERED: K and/or MAG REPLACEMENT MC SCH (08:00)
[2019-05-04] MEDS: potassium Cl 20 mEq SR tablet PO SCH ×2 (08:00→20:00)
[2019-05-04] MEDS: atorvastatin 10mg tablet PO SCH (09:19)
[2019-05-04] MEDS: aspirin 81mg tablet.DR PO SCH (09:20)
[2019-05-04] MEDS: metoprolol tartrate 50mg tablet PO SCH ×2 (09:22→20:33)
[2019-05-04] MEDS: magnesium Cl slow-release 64mg tablet PO SCH ×2 (09:23→17:29)
[2019-05-04] MEDS: pantoprazole 40mg Tablet.DR PO SCH (09:23)
[2019-05-04 11:05] VITALS: BP 130/99
--- NOTE | 2019-05-04 11:45 | NUR ---
Reassessment: Pt doing well post-op per MD notes. Pt continues meeting nutrient needs with documented 75-100% PO intake. [facility] 05/03. Will continue to follow. Rec: 1. Continue no concentrated sweets diet 2. Send double protein with meals per patient request when eating solids post op 3. wt per rx Addendum: 05/04/19 at [address] Amended: Links added.
[2019-05-04] MEDS: insulin Lispro (HumaLOG) vial - multi-dose SQ SCH ×2 (13:36→18:29)
[2019-05-04 15:00] VITALS: BP 144/93
[2019-05-04 18:00] VITALS: BP 131/97
--- NOTE | 2019-05-04 18:25 | NUR ---
Patient in room MED 316. I have received report from REGAN Summers and had the opportunity to ask questions and assume patient care.
--- NOTE | 2019-05-04 18:27 | NUR ---
Problems reprioritized. Patient report given, questions answered & plan of care reviewed with REGAN Sandoval
--- NOTE | 2019-05-04 19:03 | NUR ---
[facility] documentation: I have reviewed and agree with interventions, assessments performed and documented by Melina Mauricio RN. [employer] Medication Administration: For this medication-pass time frame, medication were reviewed, dispensed, administered and documented per hospital policy by Melina Mauricio RN.
[2019-05-04] MEDS ORDERED: insulin glargine (Lantus) pen - multi-dose SQ SCH (21:00)
[2019-05-04 22:00] VITALS: BP 148/95
[2019-05-05 02:00] VITALS: BP 156/98
[2019-05-05] MEDS: ketorolac trometh. 30mg/ml inj. IV SCH ×2 (02:00→08:36)
[2019-05-05 06:00] VITALS: BP 147/96
[2019-05-05 06:06] LABS: BASOPHILS % (AUTO) 0.2 % (0-1); EOSINOPHILS # (AUTO) 0.2 X10'3 (0-0.9); EOSINOPHILS % (AUTO) 2.7 % (0-6); HEMOGLOBIN 12.4 g/dl (14.0-17.9); LYMPHOCYTES # (AUTO) 2.2 X10'3 (1.1-4.8); LYMPHOCYTES % (AUTO) 25.9 % (21-51); MEAN CORPUSCULAR HEMOGLOBIN 31.8 PG (27.0-31.0); MEAN CORPUSCULAR HGB CONC 34.4 g/dL (33.0-36.5); MEAN CORPUSCULAR VOLUME 92.4 FL (78-98); MEAN PLATELET VOLUME 9.8 FL (7.4-10.4); MONOCYTES # (AUTO) 0.9 X10'3 (0-0.9); MONOCYTES % (AUTO) 10.8 % (2-12); NEUTROPHILS # (AUTO) 5.1 X10'3 (1.8-7.7); NEUTROPHILS % (AUTO) 60.4 % (42-75); PLATELET COUNT 163 X10'3 (140-440); RED BLOOD COUNT 3.89 X10'6 (4.70-6.10); RED CELL DISTRIBUTION WIDTH 13.1 % (11.5-14.5); WHITE BLOOD COUNT 8.4 X10'3 (4.5-11.0)
[2019-05-05 06:51] LABS: ALBUMIN 2.8 G/DL (3.4-5.0); ANION GAP 10 (8-16); BLOOD UREA NITROGEN 22 MG/DL (7-18); BUN/CREATININE RATIO 28.6 (5.4-32.0); CALCIUM 8.9 MG/DL (8.5-10.1); CHLORIDE 106 MMOL/L (99-107); CREATININE 0.77 MG/DL (0.60-1.10); GLUCOSE 172 MG/DL (70-104); MAGNESIUM 1.8 MG/DL (1.5-2.4); SODIUM 144 MMOL/L (135-145); TOTAL CARBON DIOXIDE 28.4 MMOL/L (24-32); eGFR > 90 ML/MIN
--- NOTE | 2019-05-05 07:05 | NUR ---
Problems reprioritized. Patient report given, questions answered & plan of care reviewed with REGAN Luciano.
[2019-05-05] MEDS ORDERED: ATOR10TA PO (07:40)
[2019-05-05] MEDS ORDERED: HYDR-4353 PO (07:40)
[2019-05-05] MEDS ORDERED: METO50TA16 PO (07:40)
[2019-05-05] MEDS ORDERED: ASPI-1071 PO (07:40)
[2019-05-05] MEDS: aspirin 81mg tablet.DR PO SCH (08:36)
[2019-05-05] MEDS: magnesium Cl slow-release 64mg tablet PO SCH (08:36)
[2019-05-05] MEDS: pantoprazole 40mg Tablet.DR PO SCH (08:36)
[2019-05-05] MEDS: potassium Cl 20 mEq SR tablet PO SCH (08:37)
[2019-05-05 08:40] VITALS: BP_SYST 155
[2019-05-05] MEDS: metoprolol tartrate 50mg tablet PO SCH (08:40)
--- NOTE | 2019-05-05 09:35 | NUR ---
[facility]S CALL[facility] [address].
[2019-05-05] MEDS ORDERED: FLU VACC QS2019-20 36MOS UP/PF 60 MCG/0.5 ML SYRINGE IMVAC ONE (10:35)
--- NOTE | 2019-05-05 14:08 | NUR ---
pt. discharged from facility at 0940. pt. was wheeled down to private vehicle accompanied by staff and family. pt. received, understood and signed all paperwork. IV was d/c intact. meds were called into [facility] on [address]. pt. left with all belongings.
[2019-05-05] MEDS ORDERED: atorvastatin 10mg tablet PO SCH (21:00)
== END 2019-05-05 09:40 | disposition home or self-care (01) | DRG 234 ==
LOC: ER 17:30 → ICU 2S 20:35 → MED 3N 05-03 15:45
PROVIDERS: ADMIT Internal Medicine Critical Care Medicine; ATTEND Thoracic Surgery (Cardiothoracic Vascular Surgery)
PROC: 4A023N7 Measurement of Cardiac Sampling and Pressure, Left Heart, Percutaneous Approach (ICD-10-PCS; principal; 2019-04-29)
PROC: B2111ZZ Fluoroscopy of Multiple Coronary Arteries using Low Osmolar Contrast (ICD-10-PCS; 2019-04-29)
PROC: B2151ZZ Fluoroscopy of Left Heart using Low Osmolar Contrast (ICD-10-PCS; 2019-04-29)
PROC: B3121ZZ Fluoroscopy of Left Subclavian Artery using Low Osmolar Contrast (ICD-10-PCS; 2019-04-29)
PROC: B3111ZZ Fluoroscopy of Right Brachiocephalic-Subclavian Artery using Low Osmolar Contrast (ICD-10-PCS; 2019-04-29)
PROC: B41F1ZZ Fluoroscopy of Right Lower Extremity Arteries using Low Osmolar Contrast (ICD-10-PCS; 2019-04-29)
PROC: 02100Z9 Bypass Coronary Artery, One Artery from Left Internal Mammary, Open Approach (ICD-10-PCS; 2019-05-01)
PROC: 021309W Bypass Coronary Artery, Four or More Arteries from Aorta with Autologous Venous Tissue, Open Approach (ICD-10-PCS; 2019-05-01)
PROC: 06BP4ZZ Excision of Right Saphenous Vein, Percutaneous Endoscopic Approach (ICD-10-PCS; 2019-05-01)
PROC: 5A1221Z Performance of Cardiac Output, Continuous (ICD-10-PCS; 2019-05-01)
PROC: B24BZZ4 Ultrasonography of Heart with Aorta, Transesophageal (ICD-10-PCS; 2019-05-01)
DX: I21.19 ST elevation (STEMI) myocardial infarction involving other coronary artery of inferior wall (principal); I16.1 Hypertensive emergency; I31.3 Pericardial effusion (noninflammatory); E11.65 Type 2 diabetes mellitus with hyperglycemia; E66.9 Obesity, unspecified; I25.110 Atherosclerotic heart disease of native coronary artery with unstable angina pectoris; E78.5 Hyperlipidemia, unspecified; F12.90 Cannabis use, unspecified, uncomplicated; I10 Essential (primary) hypertension; Z79.84 Long term (current) use of oral hypoglycemic drugs; Z85.810 Personal history of malignant neoplasm of tongue; Z68.29 Body mass index [BMI] 29.0-29.9, adult
CPT/HCPCS: 0232T; 93312; 93325; 93458; 96365; 96375; 96376; 99291; Z7506; Z7508; 36415; 36600; 71045; 80048; 80053; 80061; 82330; 82435; 82803; 82947; 82948; 83036; 83735; 83880; 84100; 84132; 84295; 84484; 85018; 85025; 85347; 85384; 85610; 85730; 86885; 86900; 86901; 86920; 87081; 93005; 93880; 93931; 93971; 94667; 94760; 97161; 97530; 99152; 99153; A4618; A4620; A6258; A6402; A6449; A7000; A7048; C1713; C1751; C1760; C1769; C9113; G0378; J0131; J0690; J1644; J1815; J1885; J1940; J2001; J2060; J2150; J2250; J2270; J2370; J2440; J2704; J2720; J2795; J2930; J3010; J3370; J3475; J3480; J3490; J7030; J7040; J7050; J7120; P9045; P9047; Q2037; Q9967

== ENCOUNTER 2020-09-04 13:31 | Emergency (ER) | payer MEDICAID ==
[~2020-09-04] VITALS: Ht 180.3 cm; Wt 104.5 kg
[~2020-09-04 13:31] MED LIST changes: +ASPI-1071 PO; +ATOR10TA PO; +HYDR-4353 PO; -LIDOcaine 2% (20 mg/ml) 5ml cardiac syringe ONE; +METF500T PO; +METO50TA16 PO; -albumin (human) 25% 100 ML IV solution IV ONE; -aminocaproic acid 250 MG/1 ML inj. ONE; -aspirin 81mg tab.chew ONE; -calcium chloride 100 MG/1 ML inj IV ONE; -heparin 1,000 units/ml 10ml inj ONE; -heparin 10,000 units/1 ML INJ ONE; -magnesium sulf 1 GM/2 ML ONE; -methylPREDNISolone sod. succ. 500mg inj ONE; -nitroGLYCERIN in D5W 50mg/250ml (Tridil) infusion IV ONE; -normal saline 1000ML IV soln ONE; -papaverine 30 mg/ml 2ml inj. ONE; -phenylephrine 10mg/ml inj. ONE; -potassium Cl 2 mEq/ml inj IV ONE; -sodium bicarbonate (8.4%) 1 mEq/ml syringe ONE
--- NOTE | 2020-09-04 14:11 | NUR ---
Contacted pt's PMD office to get copy of Pt's positive covid test. MA will return call.
[2020-09-04] MEDS ORDERED: [UNRECOGNIZED DRUG - OTHER] IV ONE (14:20)
--- NOTE | 2020-09-04 14:42 | NUR ---
spoke to pharmacist regarding pt iv drip as per chief ophthalmic technician they are in middle of making it,come in 15 mins.
--- NOTE | 2020-09-04 17:10 | NUR ---
PT IV DRIP COMPLETED AT THIS TIME WILL OBSERVE THE PT FOR AN HOUR FROM NOW.
--- NOTE | 2020-09-04 17:42 | NUR ---
PT HAS TO OBSERVED FOR 1 HR AFTER THE IV DRIP IS FINISHED .
[2020-09-04] MEDS ORDERED: ALBU8HFA PO (17:52)
[2020-09-04] MEDS ORDERED: BENZ-16 PO (17:52)
--- NOTE | 2020-09-04 18:21 | NUR ---
NIKA EID, HAS HANDED OFF PT TO NIKA CABRERA. NIKA MUNOZ REQUESTS TO RECYCLE BP (CURRENTLY 195/124, 176/98) AND UPDATE VS. PT HAS BEEN FINISHED WITH THE [facility] FOR ONE HOUR NOW. PT REPORTEDLY TAKES HTN RX AND HAS NOT TAKEN THEM RECENTLY.
[2020-09-04 19:38] VITALS: BP 173/100
== END 2020-09-04 19:40 | disposition home or self-care (01) ==
LOC: ER 13:31
DX: U07.1 COVID-19 (principal); J02.9 Acute pharyngitis, unspecified; R09.81 Nasal congestion; R42 Dizziness and giddiness; R06.02 Shortness of breath; R51.9 Headache, unspecified; R05 Cough; I25.10 Atherosclerotic heart disease of native coronary artery without angina pectoris; I10 Essential (primary) hypertension; I25.2 Old myocardial infarction; E11.9 Type 2 diabetes mellitus without complications; F12.90 Cannabis use, unspecified, uncomplicated; Z85.9 Personal history of malignant neoplasm, unspecified; Z98.890 Other specified postprocedural states; Z72.89 Other problems related to lifestyle; Z79.82 Long term (current) use of aspirin; Z79.899 Other long term (current) drug therapy
CPT/HCPCS: 99285; J7050; M0243; Q0243; 96360

== ENCOUNTER 2020-09-12 08:22 | Emergency (ER) | payer MEDICAID ==
[~2020-09-12] VITALS: Ht 177.8 cm; Wt 100.0 kg
[~2020-09-12 08:22] MED LIST changes: +ALBU8HFA PO; +BENZ-16 PO
[2020-09-12 08:28] VITALS: BP 179/107
[2020-09-12] MEDS ORDERED: triamcinolone acetonide 40mg/ml inj IM ONE (08:40)
[2020-09-12] MEDS ORDERED: dexamethasone 4mg/ml inj IM ONE (08:52)
== END 2020-09-12 09:03 | disposition home or self-care (01) ==
LOC: ER 08:23
DX: L23.7 Allergic contact dermatitis due to plants, except food (principal); I25.10 Atherosclerotic heart disease of native coronary artery without angina pectoris; I10 Essential (primary) hypertension; E11.9 Type 2 diabetes mellitus without complications; F12.90 Cannabis use, unspecified, uncomplicated; Z85.9 Personal history of malignant neoplasm, unspecified; Z98.890 Other specified postprocedural states; Z72.89 Other problems related to lifestyle; Z79.82 Long term (current) use of aspirin; Z79.899 Other long term (current) drug therapy
CPT/HCPCS: 96372; 99284; J1100; J3301

== ENCOUNTER 2021-02-09 19:24 | Emergency (ER) | payer MEDICAID ==
[~2021-02-09] VITALS: Ht 180.3 cm; Wt 90.9 kg
[~2021-02-09 19:24] MED LIST changes: -ALBU8HFA PO; -BENZ-16 PO
[2021-02-09 19:32] VITALS: BP 163/108
[2021-02-09 20:17] LABS: BASOPHILS % (AUTO) 0.3 % (0-1); EOSINOPHILS # (AUTO) 0.2 X10'3 (0-0.9); EOSINOPHILS % (AUTO) 2.1 % (0-6); HEMATOCRIT 40.8 % (42.0-52.0); HEMOGLOBIN 14.1 g/dl (14.0-17.9); LYMPHOCYTES # (AUTO) 3.3 X10'3 (1.1-4.8); LYMPHOCYTES % (AUTO) 38.4 % (21-51); MEAN CORPUSCULAR HEMOGLOBIN 32.2 PG (27.0-31.0); MEAN CORPUSCULAR HGB CONC 34.7 g/dL (33.0-36.5); MEAN CORPUSCULAR VOLUME 92.8 FL (78-98); MEAN PLATELET VOLUME 8.8 FL (7.4-10.4); MONOCYTES # (AUTO) 0.8 X10'3 (0-0.9); MONOCYTES % (AUTO) 9.3 % (2-12); NEUTROPHILS # (AUTO) 4.3 X10'3 (1.8-7.7); NEUTROPHILS % (AUTO) 49.9 % (42-75); PLATELET COUNT 205 X10'3 (140-440); WHITE BLOOD COUNT 8.6 X10'3 (4.5-11.0)
[2021-02-09 20:27] LABS: ALANINE AMINOTRANSFERASE 24 U/L (12-78); ALBUMIN 3.5 G/DL (3.4-5.0); ALKALINE PHOSPHATASE 57 IU/L (46-116); ANION GAP 8 (8-16); ASPARTATE AMINO TRANSFERASE 9 U/L (10-37); BILIRUBIN,TOTAL 0.2 MG/DL (0.1-1.0); BLOOD UREA NITROGEN 15 MG/DL (7-18); CALCIUM 8.3 MG/DL (8.5-10.1); CHLORIDE 106 MMOL/L (99-107); CREATININE 1.07 MG/DL (0.60-1.10); GLUCOSE 183 MG/DL (70-104); POTASSIUM 3.4 MMOL/L (3.5-5.1); SODIUM 142 MMOL/L (135-145); TOTAL CARBON DIOXIDE 28.2 MMOL/L (24-32); TOTAL PROTEIN 7.1 G/DL (6.4-8.2); eGFR 71 ML/MIN
== END 2021-02-09 21:02 | disposition left against medical advice (07) ==
LOC: ER 19:25
DX: R07.89 Other chest pain (principal); Z53.21 Procedure and treatment not carried out due to patient leaving prior to being seen by health care provider
CPT/HCPCS: 36415; 71045; 80053; 83880; 84484; 85025; 93005

== ENCOUNTER 2021-12-14 07:32 | Emergency (ER) | payer MEDICAID ==
[~2021-12-14] VITALS: Ht 180.3 cm; Wt 104.5 kg
[2021-12-14 10:06] VITALS: BP 126/81
== END 2021-12-14 11:35 | disposition home or self-care (01) ==
LOC: ER 07:32
DX: M79.671 Pain in right foot (principal); E11.40 Type 2 diabetes mellitus with diabetic neuropathy, unspecified; I25.10 Atherosclerotic heart disease of native coronary artery without angina pectoris; I10 Essential (primary) hypertension; I25.2 Old myocardial infarction; F12.90 Cannabis use, unspecified, uncomplicated; Z85.9 Personal history of malignant neoplasm, unspecified; Z95.5 Presence of coronary angioplasty implant and graft; Z72.89 Other problems related to lifestyle; Z79.82 Long term (current) use of aspirin; Z79.899 Other long term (current) drug therapy
CPT/HCPCS: 73630; 99283

== ENCOUNTER 2023-01-24 18:27 | Emergency (ER) | payer MEDICAID ==
[~2023-01-24] VITALS: Ht 177.8 cm; Wt 115.9 kg
[2023-01-24 18:51] LABS: BASOPHILS % (AUTO) 0.3 % (0-1); EOSINOPHILS # (AUTO) 0.1 X10'3 (0-0.9); EOSINOPHILS % (AUTO) 1.5 % (0-6); HEMATOCRIT 39.5 % (42.0-52.0); HEMOGLOBIN 13.8 g/dl (14.0-17.9); LYMPHOCYTES # (AUTO) 0.4 X10'3 (1.1-4.8); LYMPHOCYTES % (AUTO) 4.1 % (21-51); MEAN CORPUSCULAR HEMOGLOBIN 32.5 PG (27.0-31.0); MEAN CORPUSCULAR HGB CONC 34.8 g/dL (33.0-36.5); MEAN CORPUSCULAR VOLUME 93.6 FL (78-98); MEAN PLATELET VOLUME 8.8 FL (7.4-10.4); MONOCYTES # (AUTO) 0.7 X10'3 (0-0.9); MONOCYTES % (AUTO) 7.5 % (2-12); NEUTROPHILS # (AUTO) 8.1 X10'3 (1.8-7.7); NEUTROPHILS % (AUTO) 86.6 % (42-75); PLATELET COUNT 173 X10'3 (140-440); RED BLOOD COUNT 4.23 X10'6 (4.70-6.10); RED CELL DISTRIBUTION WIDTH 13.8 % (11.5-14.5); WHITE BLOOD COUNT 9.3 X10'3 (4.5-11.0)
[2023-01-24 18:53] VITALS: BP 165/97
[2023-01-24 19:02] LABS: ALANINE AMINOTRANSFERASE 57 U/L (12-78); ALBUMIN 3.9 G/DL (3.4-5.0); ALBUMIN/GLOBULIN RATIO 1.3 (1.1-1.5); ALKALINE PHOSPHATASE 54 IU/L (46-116); ANION GAP 8 (8-16); ASPARTATE AMINO TRANSFERASE 25 U/L (10-37); BILIRUBIN,TOTAL 0.6 MG/DL (0.1-1.0); BLOOD UREA NITROGEN 25 MG/DL (7-18); BUN/CREATININE RATIO 21.4 (10.0-20.0); CALCIUM 8.9 MG/DL (8.5-10.1); CHLORIDE 104 MMOL/L (99-107); CREATININE 1.17 MG/DL (0.60-1.10); GLUCOSE 122 MG/DL (70-104); POTASSIUM 3.5 MMOL/L (3.5-5.1); SODIUM 141 MMOL/L (135-145); TOTAL CARBON DIOXIDE 29.2 MMOL/L (24-32); eGFR 64 ML/MIN
== END 2023-01-24 21:59 | disposition left against medical advice (07) ==
LOC: ER 18:27
DX: R07.89 Other chest pain (principal); Z53.21 Procedure and treatment not carried out due to patient leaving prior to being seen by health care provider
CPT/HCPCS: 36415; 80053; 83880; 84484; 85025; 99281